=== PATIENT | male | born 1985 | race Caucasian/White ===

== ENCOUNTER 2017-01-21 11:35 | Emergency (ER) | payer SELFPAY ==
[~2017-01-21] VITALS: Ht 190.5 cm; Wt 89.8 kg
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
--- NOTE | 2017-01-21 12:22 | NUR ---
Patient does not wish to proceed with medical care recommended by Dr. Agudelo. Patient given information related to possible complications, up to and including , which could occur as a result of leaving the hospital at this time. Patient verbalizes understanding of risks involved due to leaving against medical advice. Patient has signed AMA form.
[2017-01-21 12:24] VITALS: BP 130/80
--- NOTE | 2017-01-21 12:25 | NUR ---
per patient he spoke with his pmd
== END 2017-01-21 12:26 | disposition left against medical advice (07) ==
LOC: ER 11:38
DX: N50.811 Right testicular pain (principal)
CPT/HCPCS: 99281; A4606; Z7610; Z7502